=== PATIENT | male | born 1960 | race African-American/Black ===

== ENCOUNTER 2017-11-04 07:36 | Day surgery (SDC) | payer OTHER ==
[2017-11-04] MEDS ORDERED: BUPIVACAINE 0.5% (SDV) 30 ML INJ (08:27)
[2017-11-04] MEDS ORDERED: LIDOCAINE 1% (MPF) 30 ML INJ (08:27)
[2017-11-04] MEDS ORDERED: DEXAMETHASONE 4 MG/ML 1 ML INJ (08:27)
[2017-11-04] MEDS ORDERED: POVIDONE IODINE 10% 28.4 GM OINT (08:27)
[2017-11-04] MEDS ORDERED: LIDOCAINE 1% (MDV) 20 ML INJ (08:37)
[2017-11-04] MEDS ORDERED: FENTAnyl 50 MCG/ML VIAL (08:37)
[2017-11-04] MEDS ORDERED: PROPOFOL 20 ML (08:38)
[2017-11-04] MEDS ORDERED: CEFAZOLIN 1 GM INJ (08:38)
[2017-11-04] MEDS ORDERED: ONDANSETRON 4 MG INJ ×2 (08:38→10:33)
[2017-11-04] MEDS ORDERED: FENTAnyl 50 MCG/ML VIAL IV (09:00)
[2017-11-04] MEDS ORDERED: KETOROLAC 30 MG INJ (09:37)
[2017-11-04] MEDS ORDERED: ESMOLOL 10 ML (09:56)
[2017-11-04] MEDS: BUPIVACAINE 0.5% (MPF) 30 ML INJ EPI (10:03)
[2017-11-04] MEDS: ONDANSETRON 4 MG INJ IV (10:30)
[2017-11-04] MEDS: hydrALAzine 20 MG INJ IV (11:00)
[2017-11-04] MEDS ORDERED: hydrALAzine 20 MG INJ (11:07)
[2017-11-04] MEDS: HYDROmorphONE (0.2 MG/ML) 10ML SYG IV (12:29)
[2017-11-04] MEDS ORDERED: HYDROmorphONE 0.5 MG/0.5 ML SYG IV (12:34)
== END 2017-11-04 13:00 | disposition home or self-care (01) ==
LOC: SDS 07:36
DX: M21.6X1 Other acquired deformities of right foot (principal); M21.611 Bunion of right foot
CPT/HCPCS: 28292; 88304; 88311

== ENCOUNTER 2017-11-26 21:37 | Inpatient (IN) | payer OTHER ==
[2017-11-26] MEDS ORDERED: ACETAMINOPHEN 325 MG TAB PO (22:30)
[2017-11-26] MEDS: SOD CHLORIDE 0.9% 500 ML IV (23:05)
[2017-11-26] MEDS: CEFTRIAXONE 1 GM/50 ML (PMX) 50 ML IVPB (23:08)
[2017-11-26] MEDS: SILVER SULFADIAZINE 1% 25 GM CR TOP (23:30)
[2017-11-27] MEDS: HYDROCODONE/APAP (5/325) TAB PO ×2 (05:18→19:41)
[2017-11-27] MEDS: PANTOPRAZOLE (EC) 40 MG TAB PO (05:18)
[2017-11-27] MEDS: SILVER SULFADIAZINE 1% 25 GM CR TOP ×3 (05:21→14:00)
[2017-11-27 06:26] LABS: ADD MAN DIFF? NO
[2017-11-27 06:34] LABS: ABNORMAL IP MESSAGE 1; BASOPHILS % 0.4 % (0.0-2.0); EOSINOPHILS # 0.2 10^3/ul (0.0-0.5); EOSINOPHILS % 3.1 % (0.0-7.0); HEMATOCRIT 39.7 % (42.0-52.0); HEMOGLOBIN 12.1 g/dl (14.0-18.0); LYMPHOCYTES # 3.1 10^3/ul (0.8-2.9); LYMPHOCYTES % 42.8 % (15.0-51.0); MEAN CORPUSCULAR HEMOGLOBIN 23.5 pg (29.0-33.0); MEAN CORPUSCULAR HGB CONC 30.5 g/dl (32.0-37.0); MEAN CORPUSCULAR VOLUME 77.2 fl (82.0-101.0); MEAN PLATELET VOLUME 12.2 fl (7.4-10.4); MONOCYTE # 0.7 10^3/ul (0.3-0.9); MONOCYTES % 9.7 % (0.0-11.0); NEUTROPHIL # 3.1 10^3/ul (1.6-7.5); NEUTROPHILS % 43.7 % (39.0-77.0); PLATELET COUNT 305 10^3/UL (140-415); POSITIVE DIFF @See below; RED BLOOD COUNT 5.14 10^6/ul (4.70-6.10); RED CELL DISTRIBUTION WIDTH 16.4 % (11.5-14.5)
[2017-11-27 06:34] LABS: WHITE BLOOD COUNT 7.2 10^3/ul (4.8-10.8)
[2017-11-27 07:06] LABS: ALANINE AMINOTRANSFERASE 29 IU/L (13-69); ALBUMIN 3.6 g/dl (3.3-4.9); ALBUMIN/GLOBULIN RATIO 1.33; ALKALINE PHOSPHATASE 85 IU/L (42-121); ANION GAP 14 (8-16); ASPARTATE AMINO TRANSFERASE 16 IU/L (15-46); BLOOD UREA NITROGEN 12 mg/dl (7-20); CALCIUM 8.7 mg/dl (8.4-10.2); CARBON DIOXIDE 29 mmol/L (21-31); CHLORIDE 111 mmol/L (97-110); CREATININE 1.11 mg/dl (0.61-1.24); GLUCOSE 123 mg/dl (70-220); POTASSIUM 4.1 mmol/L (3.5-5.1); SODIUM 150 mmol/L (135-144); TOTAL PROTEIN 6.3 g/dl (6.1-8.1)
[2017-11-27] MEDS: AMLODIPINE 5 MG TAB PO ×3 (08:15→21:23)
[2017-11-27] MEDS: SOD CHLORIDE 0.9% 500 ML IV (08:16)
[2017-11-27] MEDS: ENOXAPARIN 30 MG/0.3 ML SYG SC (08:18)
[2017-11-27] MEDS ORDERED: DEXTROSE 5% 1,000 ML IV (15:30)
[2017-11-27] MEDS: DEXTROSE 5% 500 ML IV (16:33)
[2017-11-27] MEDS: CEFTRIAXONE 1 GM/50 ML (PMX) 50 ML IVPB (23:32)
[2017-11-28] MEDS: DEXTROSE 5% 500 ML IV ×4 (00:50→17:30)
[2017-11-28] MEDS: PANTOPRAZOLE (EC) 40 MG TAB PO (06:06)
[2017-11-28 06:14] LABS: ADD MAN DIFF? NO
[2017-11-28 06:17] LABS: BASOPHILS % 0.4 % (0.0-2.0); EOSINOPHILS # 0.3 10^3/ul (0.0-0.5); EOSINOPHILS % 4.5 % (0.0-7.0); HEMOGLOBIN 12.2 g/dl (14.0-18.0); LYMPHOCYTES % 36.3 % (15.0-51.0); MEAN CORPUSCULAR HEMOGLOBIN 23.6 pg (29.0-33.0); MEAN CORPUSCULAR HGB CONC 31.3 g/dl (32.0-37.0); MEAN CORPUSCULAR VOLUME 75.3 fl (82.0-101.0); MEAN PLATELET VOLUME 11.9 fl (7.4-10.4); MONOCYTE # 0.5 10^3/ul (0.3-0.9); NEUTROPHIL # 2.8 10^3/ul (1.6-7.5); NEUTROPHILS % 49.4 % (39.0-77.0); PLATELET COUNT 296 10^3/UL (140-415); RED BLOOD COUNT 5.18 10^6/ul (4.70-6.10); RED CELL DISTRIBUTION WIDTH 16.6 % (11.5-14.5)
[2017-11-28 06:17] LABS: WHITE BLOOD COUNT 5.6 10^3/ul (4.8-10.8)
[2017-11-28 06:49] LABS: ALANINE AMINOTRANSFERASE 25 IU/L (13-69); ALBUMIN 3.7 g/dl (3.3-4.9); ALBUMIN/GLOBULIN RATIO 1.32; ALKALINE PHOSPHATASE 75 IU/L (42-121); ANION GAP 14 (8-16); ASPARTATE AMINO TRANSFERASE 16 IU/L (15-46); BLOOD UREA NITROGEN 14 mg/dl (7-20); CALCIUM 8.7 mg/dl (8.4-10.2); CARBON DIOXIDE 28 mmol/L (21-31); CHLORIDE 107 mmol/L (97-110); CREATININE 0.89 mg/dl (0.61-1.24); GLUCOSE 108 mg/dl (70-220); POTASSIUM 3.8 mmol/L (3.5-5.1); SODIUM 145 mmol/L (135-144); TOTAL PROTEIN 6.5 g/dl (6.1-8.1)
[2017-11-28] MEDS: AMLODIPINE 5 MG TAB PO ×2 (09:08→20:03)
[2017-11-28] MEDS: ENOXAPARIN 30 MG/0.3 ML SYG SC (09:09)
[2017-11-28] MEDS: SILVER SULFADIAZINE 1% 25 GM CR TOP (14:26)
[2017-11-28] MEDS ORDERED: VANCOMYCIN IV PER PHARMACY XX (14:30)
[2017-11-28] MEDS: VANCOMYCIN 1.5 GM in SOD CHLORIDE 0.9% 250 ML IVPB (16:55)
[2017-11-28] MEDS: HYDROCODONE/APAP (5/325) TAB PO (17:46)
[2017-11-28] MEDS: CEFTRIAXONE 1 GM/50 ML (PMX) 50 ML IVPB (23:40)
[2017-11-29] MEDS: DEXTROSE 5% 500 ML IV ×3 (01:50→10:10)
[2017-11-29] MEDS: HYDROCODONE/APAP (5/325) TAB PO ×2 (02:20→14:35)
[2017-11-29] MEDS: VANCOMYCIN 1 GM 250 ML IVPB (03:45)
[2017-11-29] MEDS: PANTOPRAZOLE (EC) 40 MG TAB PO (06:23)
[2017-11-29 06:45] LABS: ALANINE AMINOTRANSFERASE 28 IU/L (13-69); ALBUMIN 3.5 g/dl (3.3-4.9); ALBUMIN/GLOBULIN RATIO 1.25; ALKALINE PHOSPHATASE 65 IU/L (42-121); ANION GAP 13 (8-16); ASPARTATE AMINO TRANSFERASE 15 IU/L (15-46); BILIRUBIN,INDIRECT 0.1 mg/dl (0-1.1); BILIRUBIN,TOTAL 0.1 mg/dl (0.2-1.3); BLOOD UREA NITROGEN 11 mg/dl (7-20); CALCIUM 8.6 mg/dl (8.4-10.2); CARBON DIOXIDE 28 mmol/L (21-31); CHLORIDE 106 mmol/L (97-110); CREATININE 0.85 mg/dl (0.61-1.24); GLUCOSE 110 mg/dl (70-220); POTASSIUM 3.7 mmol/L (3.5-5.1); SODIUM 143 mmol/L (135-144); TOTAL PROTEIN 6.3 g/dl (6.1-8.1)
[2017-11-29] MEDS: ENOXAPARIN 30 MG/0.3 ML SYG SC (08:53)
[2017-11-29] MEDS: AMLODIPINE 5 MG TAB PO (08:53)
[2017-11-29] MEDS: SILVER SULFADIAZINE 1% 25 GM CR TOP (08:54)
[2017-11-29] MEDS ORDERED: LIDOCAINE 1% (MPF) 5 ML VIAL SC (16:00)
[2017-11-29] MEDS ORDERED: LORAZEPAM 2 MG INJ IV (16:00)
== END 2017-11-29 16:10 | disposition left against medical advice (07) | DRG 603 ==
LOC: MS2 11-27 18:20
DX: L03.115 Cellulitis of right lower limb (principal); G62.9 Polyneuropathy, unspecified; I10 Essential (primary) hypertension; L97.519 Non-pressure chronic ulcer of other part of right foot with unspecified severity; F43.10 Post-traumatic stress disorder, unspecified; F31.9 Bipolar disorder, unspecified; D64.9 Anemia, unspecified; I25.10 Atherosclerotic heart disease of native coronary artery without angina pectoris; M54.9 Dorsalgia, unspecified; M19.019 Primary osteoarthritis, unspecified shoulder; B95.61 Methicillin susceptible Staphylococcus aureus infection as the cause of diseases classified elsewhere; B95.5 Unspecified streptococcus as the cause of diseases classified elsewhere; B96.20 Unspecified Escherichia coli [E. coli] as the cause of diseases classified elsewhere; Z87.81 Personal history of (healed) traumatic fracture
CPT/HCPCS: 73630; 73700; 80053; 85025; 87070